=== PATIENT | male | born 1950 | race Caucasian/White ===

== ENCOUNTER 2019-12-09 13:03 | Emergency (ER) | payer OTHER ==
[2019-12-09 13:11] VITALS: BP 119/71; PULSE 73; TEMP 97.9; BMI 26.2
[2019-12-09] MEDS ORDERED: DIPHTH,PERTUSS(ACELL),TET 0.5 ML DISP.SYRIN IM ONE ×2 (13:12→14:04)
--- NOTE | 2019-12-09 13:12 | PDOC ---
Rapid Medical Evaluation Time Seen by Provider: 12/09/19 13:06 Medical Evaluation: Allergies Allergy/AdvReac Type Severity Reaction Status Date / Time No Known Allergies Allergy Verified 09/22/17 13:26 12/09/19 13:06 I performed a brief in-person evaluation of this patient. Healthy 69-year-old male with laceration to right thumb from mandolin just prior to arrival. Last tetanus vaccine > 5 yrs ago. Pertinent physical exam findings: 2cm linear laceration palmar aspect right thumb, actively bleeding I have ordered the following: Tetanus booster Patient to proceed to [facility] for further evaluation. Discharge Disposition - Diagnosis Finger laceration - Referrals - Patient Instructions - Post Discharge Activity
--- NOTE | 2019-12-09 14:55 | PDOC ---
History of Present Illness - General Chief Complaint: Laceration Stated Complaint: RT HAND INJURY Time Seen by Provider: 12/09/19 13:06 History Source: Patient Exam Limitations: No Limitations Past History - Past Medical History Allergies/Adverse Reactions: Allergies Allergy/AdvReac Type Severity Reaction Status Date / Time Penicillins Allergy Verified 12/09/19 13:06 Home Medications: Ambulatory Orders Omeprazole 20 mg PO DAILY 12/09/19 COPD: No Other medical history: DENIES - Immunization History Immunization Up to Date: Yes - Psycho Social/Smoking Cessation Hx Smoking History: Never smoked Have you smoked in the past 12 months: No Hx Alcohol Use: No Drug/Substance Use Hx: No Substance Use Type: None *Physical Exam - Vital Signs Last Vital Signs Temp Pulse Resp BP Pulse Ox 97.9 F 73 18 119/71 12/09/19 13:07 12/09/19 13:07 12/09/19 13:07 12/09/19 13:07 - Physical Exam General Appearance: No: Apparent Distress Extremity: positive: Other (around 2.5 cm laceration along volar aspect of R thumb, along IP joint, able to flex and extend, no other trauma noted) Integumentary: negative: Ecchymosis, Bruising Neurologic: positive: Alert Procedures - Laceration/Wound Repair Right Hand 1st digit Wound Length: to 2.5 cm Wound Explored: clean Wound's Depth, Shape: superficial Irrigated w/ Saline: Yes Betadine Prep: Yes Anesthesia: 1% Lidocaine Wound Debrided: minimal Wound Repaired With: Sutures Suture Size/Type: 5:0, proline Number of Sutures: 8 Splint Applied: Yes Type of Splint Applied: Finger splint ED Treatment Course - Medications Given in the ED: ED Medications Discontinued Medications Generic Name Dose Route Start Last Admin Trade Name Freq PRN Reason Stop Dose Admin Diphtheria/Tetanus/Acell Pertussis 0.5 ml 12/09/19 13:12 12/09/19 14:32 Boostrix - IM 12/09/19 13:13 0.5 ml .ONCE ONE Administration Medical Decision Making - Medical Decision Making 69 y/o M with no sig pmh presents with cut to R thumb from today after cutting it accidentally with Mandolin knife. Last tetanus >5 years ago. denies other injuries Lac repaired (see note) Tetanus updated stable for dc 01/20/20 14:53 Discharge - Discharge Information Problems reviewed: Yes Clinical Impression/Diagnosis: Finger laceration Qualifiers: Encounter type: initial encounter Finger: thumb Damage to nail status: without damage Foreign body presence: without foreign body Laterality: right Qualified Code(s): S61.011A - Laceration without foreign body of right thumb without damage to nail, initial encounter Condition: Stable Disposition: HOME - Admission No - Additional Discharge Information Prescription Drug Monitoring Program (I-STOP) results: I-STOP not reviewed - Follow up/Referral Referrals: ON STAFF,NOT [Primary Care Provider] - - Patient Discharge Instructions Patient Printed Discharge Instructions: DI for Laceration Repair Additional Instructions: Thank you for choosing [facility]. It was a pleasure taking care of you. Return in 7-10 days for suture removal Keep site dry for next 24 hours You may then gently clean with soap and water Return to the Emergency Department if your symptoms worsen or persist, you have fever, redness, purulent drainage, streaking or other concerning symptoms. - Post Discharge Activity
== END 2019-12-09 15:00 | disposition home or self-care (01) ==
LOC: JERFT 13:03
PROC: 3E0234Z Introduction of Serum, Toxoid and Vaccine into Muscle, Percutaneous Approach (ICD-10-PCS; principal; 2019-12-09)
PROC: 0HQFXZZ Repair Right Hand Skin, External Approach (ICD-10-PCS; 2019-12-09)
PROC: 2W3GX1Z Immobilization of Right Thumb using Splint (ICD-10-PCS; 2019-12-09)
DX: S61.011A Laceration without foreign body of right thumb without damage to nail, initial encounter (principal); W27.4XXA Contact with kitchen utensil, initial encounter; Y93.G1 Activity, food preparation and clean up; Y92.030 Kitchen in apartment as the place of occurrence of the external cause; Y99.8 Other external cause status
CPT/HCPCS: 12001-25; 29131; 90471; 90715; 99282-25

== ENCOUNTER 2022-06-18 07:59 | Emergency (ER) | payer OTHER ==
[2022-06-18 08:18] VITALS: BP 101/67; PULSE 69; RESP 16; TEMP 97.8; BMI 26.2
[2022-06-18] MEDS ORDERED: DIPHTH,PERTUSS(ACELL),TET 0.5 ML DISP.SYRIN IM ONE ×2 (08:27→08:34)
== END 2022-06-18 09:12 | disposition home or self-care (01) ==
LOC: JER 07:59
PROC: 3E0234Z Introduction of Serum, Toxoid and Vaccine into Muscle, Percutaneous Approach (ICD-10-PCS; principal; 2022-06-18)
DX: S01.81XA Laceration without foreign body of other part of head, initial encounter (principal); W22.8XXA Striking against or struck by other objects, initial encounter
CPT/HCPCS: 90471; 90715; 99284-25